=== PATIENT | male | born 1995 | race Caucasian/White ===

== ENCOUNTER 2020-04-06 17:13 | Emergency (ER) | payer MEDICAID ==
[~2020-04-06] VITALS: Ht 180.3 cm; Wt 61.2 kg
--- NOTE | 2020-04-06 17:20 | NUR ---
PT C/O WORSENING RIGHT EAR PAIN FOR PAST SIX DAYS. PT REPORTS PAIN PRESSURE C/O DIFFICULTY HEARING ON AFFECTED SIDE. PT ALSO REPORTS CONTACT WITH [facility] FOR PAST TWO WEEKS AND RASH IS WORSENING. PT REPORTS PAIN 8/10.
--- NOTE | 2020-04-06 17:20 | NUR ---
PATIENT TO ER #[id number]
[2020-04-06 17:47] VITALS: BP_SYST 124
--- NOTE | 2020-04-06 19:00 | NUR ---
ALERT, CALM, NO DISTRESS, COMMUNICATES CLEARLY. RASH TO LIMBS,CHEST,GROIN RT HEAR PAIN WITH DECREASED HEARING
--- NOTE | 2020-04-06 21:00 | NUR ---
Patient given written and verbal discharge instructions and verbalizes understanding. ER MD discussed with patient the results and treatment provided. Patient in stable condition. ID arm band removed. Rx of given. Patient educated on pain management and to follow up with PMD. Pain Scale 2/10. Opportunity for questions provided and answered. Medication side effect fact sheet provided.
[2020-04-06 21:39] VITALS: BP_SYST 124
== END 2020-04-06 21:39 | disposition home or self-care (01) ==
LOC: SED 17:13
DX: H66.91 Otitis media, unspecified, right ear (principal); L23.7 Allergic contact dermatitis due to plants, except food
CPT/HCPCS: 99283

== ENCOUNTER 2021-04-22 02:38 | Emergency (ER) | payer BC, MEDICAID ==
[~2021-04-22] VITALS: Ht 180.3 cm; Wt 86.2 kg
[2021-04-22 02:45] VITALS: BP_SYST 128
[2021-04-22] MEDS ORDERED: OFLOXACIN 0.3%, 5 ML EAR DROPS OT ONE (03:15)
[2021-04-22] MEDS ORDERED: AMOXICILLIN 250 MG/5 ML, 150 ML BTL PO ONE (03:15)
[2021-04-22] MEDS ORDERED: AMOXICILLIN 500 MG CAPSULE ONE (03:20)
[2021-04-22] MEDS ORDERED: AMOX500C2 PO (03:20)
[2021-04-22] MEDS ORDERED: OFLO5DRO5 RIGHT EAR (03:20)
[2021-04-22 03:30] VITALS: BP_SYST 128
== END 2021-04-22 03:30 | disposition home or self-care (01) ==
LOC: SED 02:38
DX: H60.91 Unspecified otitis externa, right ear (principal); H66.91 Otitis media, unspecified, right ear; Z79.899 Other long term (current) drug therapy
CPT/HCPCS: 99283